=== PATIENT | male | born 1975 | race Caucasian/White ===

== ENCOUNTER 2017-04-18 13:57 | Outpatient (CLI) | payer OTHER ==
--- NOTE | 2017-04-18 16:06 | DIAGNOSTIC IMAGING REPORT ---
PROCEDURE: US SCROTUM/TESTICLE INDICATION: LEFT SCROTAL MASS TECHNIQUE: Eric scale and color Doppler sonographic images through the scrotum were obtained. COMPARISON: None. FINDINGS: RIGHT TESTICLE: Measures 5 x 2.1 x 3.8 cm with normal echo structure and vascularity. Normal epididymis. LEFT TESTICLE: Measures 4.9 x 2 x 3.3 cm with normal echo structure and vascularity. There is a heterogeneous 1.2 x 1.3 x 1 cm mass in the tail of the epididymis with some vascularity and echogenic foci which may represent calcifications.. IMPRESSION: 1. 1.2 x 1.3 x 1.0 cm heterogeneous mass in the tail of the left epididymis. Etiology is uncertain but this likely represents a benign chronic inflammatory process, sperm granuloma or adenomatoid tumor. Malignancy is less likely. Recommend consultation. 2. Results discussed with MIKAYLA Stevens.
== END 2017-04-18 23:00 | disposition home or self-care (01) ==
LOC: US SRH 13:57
DX: N50.9 Disorder of male genital organs, unspecified (principal)